=== PATIENT | female | born 1960 | race Caucasian/White ===

== ENCOUNTER 2019-10-30 08:52 | Emergency (ER) | payer BC ==
[~2019-10-30] VITALS: Ht 167.6 cm; Wt 88.4 kg
[2019-10-30 09:18] VITALS: BP 150/95
[2019-10-30 09:56] LABS: CLARITY,URINE CLOUDY (Clear); COLOR,URINE STRAW (Yellow); GLUCOSE, URINE NEGATIVE (Neg); KETONES,URINE NEGATIVE (Neg); LEUKOCYTE ESTERASE ,URINE LARGE (Neg); NITRITES, URINE NEGATIVE (Neg); OCCULT BLOOD,URINE LARGE (Neg); PROTEIN,URINE TRACE mg/dl (Neg); UROBILINOGEN,URINE 0.2 E.U/dL (0.2-1.0)
[2019-10-30 09:57] LABS: URINE HCG NEGATIVE (NEG)
[2019-10-30 10:01] LABS: UA COLLECTION TYPE CLN CATCH MIDSTREAM
[2019-10-30 10:03] LABS: BACTERIA,URINE FEW /HPF (Neg); MUCUS STRANDS FEW /LPF (Neg); SQUAMOUS EPITHELIAL CELL,UR FEW /LPF (FEW); WBC,URINE 20-30 /HPF (0-4)
[2019-10-30] MEDS ORDERED: phenazopyridine 100mg tablet PO ONE (11:20)
[2019-10-30] MEDS ORDERED: SULF1TAB49 PO (11:20)
[2019-10-30] MEDS ORDERED: sulfamethoxazole/trimethoprim DS (800/160mg) tablet PO ONE (11:20)
[2019-10-30] MEDS ORDERED: PHEN-716 PO (11:20)
== END 2019-10-30 11:54 | disposition home or self-care (01) ==
LOC: ER 08:53
DX: N30.90 Cystitis, unspecified without hematuria (principal); Z88.6 Allergy status to analgesic agent; Z88.5 Allergy status to narcotic agent
CPT/HCPCS: 81001; 81025; 87088; 99283